=== PATIENT | female | born 1980 | race African-American/Black ===

== ENCOUNTER 2024-08-01 00:14 | Day surgery (SDC) | payer OTHER, SELFPAY ==
[2024-07-22 16:12] VITALS: BMI 28.3
--- OUTSIDE RECORDS SUMMARY | 2024-08-01 00:16 | XMS_ITS | Clinical Summary ---
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 Gender Identity Not on file Sexual Orientation Not on file Plan of Treatment Health Maintenance Due Date Last Done Comments Hepatitis C Virus (HCV) Screening 1978 TdaP Immunization 1978 Hepatitis B Immunization (1 of 3 - 19+ 3-dose series) 1997 Colonoscopy 07/24/2023 Colorectal Cancer Screening 07/24/2023 Influenza Immunization (#1) 2023 SARS-COV-2 Immunization ( season) 2023 04/05/2021, 07/18/2020, 06/20/2020 Respiratory Syncytial Virus (RSV) Immunization (Adult) (1 - 1-dose 75+ series) 2053 Meningococcal Immunization (ACWY) Aged Out No longer eligible b ased on patient's age to complete this topic Pneumococcal Immunization Combined Aged Out No longer eligible b ased on patient's age to complete this topic Rotavirus Immunization Aged Out No lo nger eligible based on patient's age to complete this topic
--- OUTSIDE RECORDS SUMMARY | 2024-08-01 00:17 | XMS_ITS | Clinical Summary ---
Author Organization [facility] Address [address] [place] [id number] Care Team Providers Care Tablet Tester Name Role Phone Unavailable Primary Care Provider Unavailabl e Encounters Date Type Department Care Team Description 07/17/2024 External Device Data ST[facility] ABSTRACTION Provider, Abstract 07/17/2024 External Device Data [facility] ABSTRACTION Provider, Abstract 07/16/2024 External Device Data [facility] ABSTRACTION Provider, Abstract 07/06/2024 External Device Data [facility] ABSTRACTION Provider, Abstract 07/06/2024 External Device Data [facility] ABSTRACTION Provider, Abstract 07/03/2024 External Device Data [facility] ABSTRACTION Provider, Abstract 06/19/2024 External Device Data [facility] ABSTRACTION Provider, Abstract 05/23/2024 External Device Data STL ABSTRACTION Provider, Abstract 05/14/2024 External Device Data STL ABSTRACTION Provider, Abstract from Last 3 Months Social History Tobacco Use Types Packs/Day Years Used Date Smoking Tobacco: Never Assessed Comments Unknown Sex and Gender Information Value Date Recorded Sex Assigned at Not on file 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 Gender Identity Not on file Sexual Orientation Not on file Plan of Treatment Health Maintenance Due Date Last Done Comments HEPATITIS B VACCINES (1 of 3 - 19+ 3-dose series) 1997 HPV/Cotest (21-29) 07/24/1999 CERVICAL CANCER SCREENING 2008 HPV/Cotest (30-65) 2008 PAP SMEAR 2008 COLORECTAL SCREENING 07/24/2023 Colorectal Cancer Screening 07/24/2023 FIT-DNA Q 3 years 07/24/2023 FIT/FOBT Q 1 year 07/24/2023 Flex Sig/CT Colonography Q 5 years 07/24/2023 INFLUENZA VACCINE (#1) 2023 COVID-19 Vaccine ( season) 2023 04/05/2021 BREAST CANCER SCREENING 10/05/2024 10/06/19 24, 09/07/2022, 03/12/2021, Additional history exists DTAP/TDAP/TD VACCINES (2 - Td or Tdap) 06/01/2032 06/01/2022 HPV VACCINES Aged Out No longer eligi ble based on patient's age to complete this topic PNEUMOCOCCAL VACCINE 0-49 YEARS Aged Out No longer eligible based on patient's age to complete this topic Procedures Procedure Name Priority Date/Time Associated Diagnosis Comments MAMMO 3D EWA SCREEN BILAT W OR WO CAD Routine 10/06/2023 10:38 AM CDT Visit for screening mammogram from Last 3 Months or Most Recently Relevant to Health Maintenance Results * MAMMO 3D EWA SCREEN BILAT W OR WO CAD (10/06/2023 10:38 AM CDT) Anatomical Region Laterality Modality Breast Bilateral Mammography 10/06/2023 10:3 8 AM CDT Impressions 10/06/2023 10:46 AM CDT IMPRESSION: NO MAMMOGRAPHIC EVIDENCE OF MALIGNANCY. OVERALL BIRADS CATEGORY:1 - negative. ROUTINE SCREENING MAMMOGRAPHY IS RECOMMENDED IN 12 MONTHS. A normal letter will be sent to patient. Narrative 10/06/2023 10:46 AM CDT EXAM: MAMMO 3D EWA SCREEN BILAT W OR WO CAD STUDY DATE: 10/06/2023 10:38 AM CLINICAL INDICATION: 43 years old female presents for routine screening mammography. COMPARISON: Prior mammograms, the most recent dated 09/07/2022 PROCEDURE: CC and MLO digital mammographic views of the bilateral breasts are obtained. Computer Aided Detection (CAD) was utilized. Tomosynthesis was done with all views. FINDINGS: Breast Density: Scattered fibroglandular densities. Right breast: There are no spiculated masses, suspicious microcalcifications or areas of architectural distortion in the right breast. Left breast: There are no spiculated masses, suspicious microcalcifications or areas of architectural distortion in the left breast. us Sam Frank MD MAMMO ORDERABLES Final Result from Last 3 Months or Most Recently Relevant to Health Maintenance Insurance [facility] [id number]
--- OUTSIDE RECORDS SUMMARY | 2024-08-01 00:17 | XMS_ITS | Clinical Summary ---
Author Organization [facility] Address [address] [place] [address] Care Team Providers Care Hair Stylist Name Role Phone Carin Chiang MD Primary Care Provider Allergies No known active allergies Medications amlodipine 10 MG tablet 9 Active levonorgestrel (MIRENA, 52 MG,) 20 MCG/DAY IUD Mirena 21 mcg/24 hours (8 yrs) 52 mg intrauterine device Take 1 device by intrauterine route. Active Active Problems No known active problems Immunizations Name Administration Dates Next Due Tdap (Boostrix) 06/01/2022 Family History Medical History Relation Comments None Father None Mother Relation Status Comments Father Alive Mother Alive Social History Tobacco Use Types Packs/Day Years Used Date Smoking Tobacco: Never Smokeless Tobacco: Never Tobacco Cessation:Counseling Given: Not Answered Alcohol Use Standard Drinks/Week Comments Yes 0 (1 standard drink = 0.6 oz pur e alcohol) OCCASIONALLY Comments No Sex and Gender Information Value Date Recorded Sex Assigned at Not on file Legal Sex Female 5:48 PM CDT Gender Identity Not on file Sexual Orientation Not on file Last Filed Vital Signs Vital Sign Reading Time Taken Comments Blood Pressure 129/86 06/01/2022 2:28 PM MANAGING DIRECTOR ATLAS Pulse 77 06/01/2022 2:28 PM MANAGING DIRECTOR ATLAS Temperature 36.6 C (97.9 F) 06/01/2022 2:28 PM MANAGING DIRECTOR ATLAS Respiratory Rate 18 06/01/2022 2:28 PM MANAGING DIRECTOR ATLAS Oxygen Saturation 100% 06/01/2022 2:28 PM MANAGING DIRECTOR ATLAS Inhaled Oxygen Concentration - - Weight 83.9 kg (185 lb) 06/01/2022 2:28 PM MANAGING DIRECTOR ATLAS Height 167.6 cm (5' 6 ) 06/01/2022 2:28 PM MANAGING DIRECTOR ATLAS Body Mass Index 29.86 06/01/2022 2:28 PM MANAGING DIRECTOR ATLAS Plan of Treatment Health Maintenance Due Date Last Done Comments Cervical Cancer Screening Pa p Smear (Age 30 to 64) Every 3 Years 1978 Colorectal Cancer Screening Colonoscopy (10 Years) 1978 Annual Physical 1981 Hepatitis C 1996 Hepatitis B Vaccines (1 of 3 - 19+ 3-dose series) 1997 Cervical Cancer Screening Pa p with HPV Testing (Age 30 to 64) Every 5 Years 2008 Cervical Cancer Screening wi th HPV 2008 Mammogram Screening 2018 COVID-19 Vaccine (2023-2 5 season) 2023 04/05/2021, 07/18/2020, 06/20/2020 Influenza Adult (#1) 2024 03/30/2022 DTaP, Tdap and Td Vaccines ( 2 - Td or Tdap) 06/01/2032 06/01/2022 HPV Vaccines Aged Out No longer eligi ble based on patient's age to complete this topic Meningococcal B Vaccine Aged Out No l onger eligible based on patient's age to complete this topic Meningococcal Vaccine Aged Out No akanksha miesha eligible based on patient's age to complete this topic Pneumococcal Vaccine: Pediatrics (0 to 5 Years) and At-Risk Patients (6 to 64 Years) Aged Out No longer eligible b ased on patient's age to complete this topic RSV Immunizations Under 20 Months Aged Out No longer eligible b ased on patient's age to complete this topic Insurance [facility] [id number] Care Teams Hair Stylist Relationship Specialty Start Date End Date Carin Chiang MD PCP - General FAMILY PRACTICE 01/25/19
[2024-08-01 07:41] VITALS: BP 136/80; PULSE 70; RESP 18; TEMP 36.1; O2SAT 100; BMI 26.8
[2024-08-01] MEDS: LACTATED RINGERS 1,000 ML 150 ML IV CONT (08:04)
--- NOTE | 2024-08-01 08:56 | PM.IMHP ---
H&P: HPI History of Present Illness Date/Time: 08/01/24 08:56 Chief Complaint: Screening colonoscopy Narrative: This is the patient's first colonoscopy. There are no GI symptoms and there is no family history of colorectal cancer. Review of Systems Review of Systems: All systems reviewed & are unremarkable except as noted in HPI and below PMFSH Past Medical History Medical History Abnormal Pap smear of cervix 05/26/03 LGSIL (+) HPV; 10/24/03 ascus (+) hpv; 01/20/04 LGSIL; 06/08/04 LGSIL; 09/07/04 LGSIL (+) HPV; 12/04/04; LGSIL (+) hpv; 04/11/05 lgsil (+) hpv; 10/17/05 LGSIL; 05/23/06 ASC-H (+) hpv; 11/30/06 LEEP - hgsil mee II; 05/08/07 wnl; 01/28/08 wnl; 07/28/08 wnl; 02/09/09 wnl Encounter for IUD insertion 08/02/11 Mirena insertion 08/15/16 Mirena removal Environmental allergies Essential (primary) hypertension History of endometrial biopsy 10/17/05 benign Migraine, unspecified, intractable, without status migrainosus Vitamin D deficiency Surgical History Surgical History History of 05/08/2005 primary C/S mild preeclampsia, non-reassuring status 11/14/2007, 06/01/2011 History of colposcopy with cervical biopsy 06/30/2003 squamous atypia, suggestive of koilocytotic atypia 03/04/04 squamous atypia 07/25/05 LGSIL MEE I 07/31/06 LGSIL MEE I History of LEEP (loop electrosurgical excision procedure) of cervix complicating 11/30/06 HGSIL MEE II History of wisdom tooth extraction (~2005) Family History Family History Grandparent Hypertension Heart disease maternal grandmother Mother Hypertension Social History Social History Social History: Caffeine- occasionally Smoking status: Never smoker Second hand tobacco smoke exposure: No Alcohol intake: current Alcohol use details: rarely every 3-4 months Substance use: never Substance use type: does not use Do You Feel Safe in your Home?: Yes Lack of Transportation: No Lack of Food: Never True Current Housing: I Have Housing Concerned About Future Housing: No Difficulty Paying Gas/Electric Bills: No Difficulty Paying for Meds: No Currently Unemployed: No Education: Bachelor's Degree Difficulty w/ Childcare or Family Care: No Living arrangements: with family Additional living arrangements comments: Occupation/Education: occupation Additional occupation/education comments: teacher Gender identity (if verbalized by the patient): Female Sexual Orientation (if Verbalized by the Patient): Straight or Heterosexual Spiritual care concerns: No Meds Home Medications and Allergies Home Medications ?Medication ?Instructions ?Recorded ?Confirmed ?Type amlodipine 10 mg tablet 10 mg PO DAILY #90 tabs 04/04/24 08/01/24 Rx irqalbg-vgohtcnauveuk-xvzrqmak 250 1 tablet PO Q4-6H PRN pain 04/04/24 07/22/24 History mg-250 mg-65 mg tablet (Excedrin Migraine) azelastine 137 mcg-fluticasone 50 1 spray intranasal BID #69 grams 04/04/24 08/01/24 Rx mcg/spray nasal spray cetirizine 10 mg tablet (Zyrtec) 10 mg PO DAILY PRN allergy symptoms 04/04/24 08/01/24 History cholecalciferol (vitamin D3) 1,250 1,250 mcg PO WEEKLY #12 tabs 04/23/24 08/01/24 Rx mcg (50,000 unit) tablet Allergies Allergy/AdvReac Type Severity Reaction Status Date / Time No Known Allergies Allergy Mild Verified 08/01/24 07:41 Vital Signs Vital Signs - 24 hr 08/01/24 07:41 Temperature 97 F L Pulse Rate 70 Respiratory Rate 18 Blood Pressure 136/80 Pulse Oximetry 100 Oxygen Delivery Room Air Exam Const: General: cooperative and healthy appearing Resp: Effort & Inspection: normal respiratory effort and able to speak in complete sentences Auscultation: clear to auscultation bilaterally Cardio: Rate: regular rate Rhythm: regular rhythm GI: Inspection: normal to inspection GI Palp: No No hepatosplenomegaly present Auscultation: normal bowel sounds Rectal Exam: deferred Skin: General skin exam: normal color Psych: Appearance: grossly normal Mental Status: mental status grossly normal Assessment and Plan Assessment and plan (1) Encounter for screening colonoscopy: Code(s): Z12.11 - Encounter for screening for malignant neoplasm of colon Status: Acute Assessment and Plan: The patient is deemed a good candidate for the procedure. Consent signed. Will proceed.
--- NOTE | 2024-08-01 08:57 | P.PNAN_ITS ---
Anes - Initial Pre Proc Eval Procedure: Operation Date: 08/01/24 09:00 Proposed Procedures p Screening Colonoscopy - Hector Mixon MD Date/Time: 08/01/24 08:57 Surgeon: Hector Mixon MD Pre Op Diagnosis: screening colon Patient Data Age: 44 Gender: F Height: 1.68 m Weight: 75.4 kg Last Vital Signs Temp 97 F L 08/01/24 07:41 Pulse 70 08/01/24 07:41 Resp 18 08/01/24 07:41 BP 136/80 08/01/24 07:41 Pulse Ox 100 08/01/24 07:41 O2 Del Method Room Air 08/01/24 07:41 Allergies Allergy/AdvReac Type Severity Reaction Status Date / Time No Known Allergies Allergy Mild Verified 08/01/24 07:41 Home Medications ?Medication ?Instructions ?Recorded ?Confirmed ?Type amlodipine 10 mg tablet 10 mg PO DAILY #90 tabs 04/04/24 08/01/24 Rx eocutdg-znxfatdslkqmu-jdlefddo 250 1 tablet PO Q4-6H PRN pain 04/04/24 07/22/24 History mg-250 mg-65 mg tablet (Excedrin Migraine) azelastine 137 mcg-fluticasone 50 1 spray intranasal BID #69 grams 04/04/24 08/01/24 Rx mcg/spray nasal spray cetirizine 10 mg tablet (Zyrtec) 10 mg PO DAILY PRN allergy symptoms 04/04/24 08/01/24 History cholecalciferol (vitamin D3) 1,250 1,250 mcg PO WEEKLY #12 tabs 04/23/24 08/01/24 Rx mcg (50,000 unit) tablet Patient hx anesthesia problems: none Family hx anesthesia problems: none Results Review: All pre-operative results and documents have been reviewed as part of the pre- operative evaluation. [facility] Past Medical History Medical History Abnormal Pap smear of cervix 05/26/03 LGSIL (+) HPV; 10/24/03 ascus (+) hpv; 01/20/04 LGSIL; 06/08/04 LGSIL; 09/07/04 LGSIL (+) HPV; 12/04/04; LGSIL (+) hpv; 04/11/05 lgsil (+) hpv; 10/17/05 LGSIL; 05/23/06 ASC-H (+) hpv; 11/30/06 LEEP - hgsil mee II; 05/08/07 wnl; 01/28/08 wnl; 07/28/08 wnl; 02/09/09 wnl Encounter for IUD insertion 08/02/11 Mirena insertion 08/15/16 Mirena removal Environmental allergies Essential (primary) hypertension History of endometrial biopsy 10/17/05 benign Migraine, unspecified, intractable, without status migrainosus Vitamin D deficiency Surgical History Surgical History History of 05/08/2005 primary C/S mild preeclampsia, non-reassuring status 11/14/2007, 06/01/2011 History of colposcopy with cervical biopsy 06/30/2003 squamous atypia, suggestive of koilocytotic atypia 03/04/04 squamous atypia 07/25/05 LGSIL MEE I 07/31/06 LGSIL MEE I History of LEEP (loop electrosurgical excision procedure) of cervix complicating 11/30/06 HGSIL MEE II History of wisdom tooth extraction (~2005) Family History Family History Grandparent Hypertension Heart disease maternal grandmother Mother Hypertension Social History Social History Social History: Caffeine- occasionally Smoking status: Never smoker Second hand tobacco smoke exposure: No Alcohol intake: current Alcohol use details: rarely every 3-4 months Substance use: never Substance use type: does not use Do You Feel Safe in your Home?: Yes Lack of Transportation: No Lack of Food: Never True Current Housing: I Have Housing Concerned About Future Housing: No Difficulty Paying Gas/Electric Bills: No Difficulty Paying for Meds: No Currently Unemployed: No Education: Bachelor's Degree Difficulty w/ Childcare or Family Care: No Living arrangements: with family Additional living arrangements comments: Occupation/Education: occupation Additional occupation/education comments: teacher Gender identity (if verbalized by the patient): Female Sexual Orientation (if Verbalized by the Patient): Straight or Heterosexual Spiritual care concerns: No Anes - Eval Final PreProcedure Day of Procedure 08/01/24 08:57 Patient weight: normal Heart: regular rate and rhythm Lungs: clear to auscultation Airway: Mallampati scale class II Neurological: alert and oriented Last oral intake: >/= 8 hours ASA classification: II Emergent: no Anesthetic plan: proceed Anesthesia type and monitoring: general GIVS and standard monitoring Results Review: All pre-operative results and documents have been reviewed as part of the pre- operative evaluation. Informed Consent: The patient's anesthetic plan and its attendant risks and benefits were discussed with the patient/family/POA. Questions were solicited and answers provided to the satisfaction of the patient/family/POA.
[2024-08-01 09:23] VITALS: BP 111/74; PULSE 70; RESP 22; O2SAT 100
[2024-08-01 09:23] LABS: BEDSIDEPREGUCG Negative (Negative)
[2024-08-01 09:33] VITALS: BP 117/68; PULSE 67; RESP 20; O2SAT 100
[2024-08-01 09:43] VITALS: BP 122/74; PULSE 68; RESP 20; O2SAT 100
== END 2024-08-01 09:54 | disposition home or self-care (01) ==
PROVIDERS: PCP Family Medicine; Referring Provider Family Medicine; Visit Provider Internal Medicine Gastroenterology
PROC: 0DJD8ZZ Inspection of Lower Intestinal Tract, Via Natural or Artificial Opening Endoscopic (ICD-10-PCS; CPT 45378; principal; 2024-08-01 09:00)
DX: Z12.11 Encounter for screening for malignant neoplasm of colon (principal); I10 Essential (primary) hypertension; E55.9 Vitamin D deficiency, unspecified
CPT/HCPCS: 45378; J2003; J2704; J7120